=== PATIENT | female | born 1985 | race Caucasian/White ===

== ENCOUNTER 2017-02-12 19:01 | Emergency (ER) | payer SELFPAY ==
[~2017-02-12] VITALS: Ht 165.1 cm; Wt 107.8 kg
[~2017-02-12 19:01] MED LIST: GUAI100S6 PO; ZITH250T PO
[2017-02-12 19:16] VITALS: BP 178/82; PULSE 86; RESP 18; TEMP 97.8; O2SAT 100
[2017-02-12 19:32] LABS: BLOOD, URINE LARGE (NEG); GLUCOSE,URINE NEG (NEG); KETONE, URINE NEG (NEG); NITRITE,URINE NEG (NEG)
[2017-02-12 19:33] LABS: URINE COLOR STRAW (YELLW/STRAW)
--- NOTE | 2017-02-12 19:35 | PD ---
HPI . Flank pain Chief Complaint: Flank/Kidney Pain Time Seen by Provider: 19:30 Travel History International Travel<30 days: No Contact w/Intl Traveler<30days: No History of Present Illness HPI Patient presents with chief complaint of right flank pain. Onset was this morning. Pain is rated 9/10. She has no associated fever or vomiting. She does report urinary frequency. She thinks that she has a kidney stone. She states that she has passed several tiny stones. She passed one yesterday. She did not start having pain until today. Her pain was improved with 1/2 of a hydrocodone earlier today. PFSH Past Medical History Medical History: Denies Significant Hx Diminished Hearing: No Tetanus Vaccination: > 5 Years Influenza Vaccination: No ?: Not LMP: 01/30/17 Past Surgical History Surgical History: No Previous Surgery Social History Alcohol Use: Yes (RARELY) Tobacco Use: Yes (1/2 PPD) Substance Use: Yes (weed; rarely ) Allergies-Medications (Allergen,Severity, Reaction): Coded Allergies: shellfish derived (Verified Allergy, Severe, throat swells, 02/12/17) iodine (Verified Allergy, Intermediate, rash, 02/12/17) latex (Verified Allergy, Intermediate, rash, 02/12/17) Reported Meds & Prescriptions Reported Meds & Active Scripts Active No Active Prescriptions or Reported Medications Review of Systems Except as stated in HPI: all other systems reviewed are Neg General / Constitutional: No: Fever, Chills Gastrointestinal: No: Nausea, Vomiting Genitourinary: Positive: Frequency, Flank Pain, No: Dysuria, Hematuria Physical Exam Narrative GENERAL: Awake and alert and in no acute distress. SKIN: warm/dry. HEAD: Normocephalic. EYES: Pupils equal and round. No scleral icterus. No injection or drainage. ENT: No nasal bleeding or discharge. Mucous membranes pink and moist. NECK: Trachea midline. Full range of motion without pain.. CARDIOVASCULAR: Regular rate and rhythm. RESPIRATORY: No accessory muscle use. Clear to auscultation. Breath sounds equal bilaterally. GASTROINTESTINAL: Abdomen soft. Nontender. Bowel sounds present. Nondistended. : No CVA tenderness. MUSCULOSKELETAL: No obvious deformities. NEUROLOGICAL: Awake and alert. No obvious cranial nerve deficits. Motor grossly within normal limits. Normal speech. PSYCHIATRIC: Appropriate mood and affect; insight and judgment normal. Data Data Last Documented VS Vital Signs Date Time Temp Pulse Resp B/P (MAP) Pulse Ox O2 Delivery O2 Flow Rate FiO2 02/12/17 19:16 97.8 86 18 178/82 (114) 100 Orders Orders Urinalysis - C+S If Indicated (02/12/17 19:18) Ct Abd/Pel W/O Iv Contrast (02/12/17 19:19) ^ Saline Lock (02/12/17 19:31) Morphine Inj (Morphine Inj) (02/12/17 19:45) Ondansetron Inj (Zofran Inj) (02/12/17 19:45) Ketorolac Inj (Toradol Inj) (02/12/17 19:45) Urine Culture (02/12/17 19:28) Ceftriaxone Inj (Rocephin Inj) (02/12/17 19:45) Sodium Chlor 0.9% 1000 Ml Inj (Ns 1000 M (02/12/17 19:45) Ed Urine Pregnancytest Poc (02/12/17 19:57) Labs Laboratory Tests Test 02/12/17 19:28 Urine Color STRAW Urine Turbidity CLEAR Urine pH 6.0 Urine Specific [place] 1.005 Urine Protein TRACE mg/dL Urine Glucose (UA) NEG mg/dL Urine Ketones NEG mg/dL Urine Occult Blood LARGE Urine Nitrite NEG Urine Bilirubin NEG Urine Leukocyte Esterase MOD Urine RBC 4-9 /hpf Urine WBC 20-24 /hpf Urine WBC Clumps FEW Urine Squamous Epithelial Cells 0-5 /hpf Urine Bacteria FEW /hpf Microscopic Urinalysis Comment CULTURE INDICATED MDM Medical Decision Making Medical Screen Exam Complete: Yes Emergency Medical Condition: Yes Differential Diagnosis Differential diagnosis of flank pain includes but is not limited to kidney stone , pyelonephritis, musculoskeletal pain, PE Narrative Course Patient presents with right flank pain. UA and CT are pending. I will treat her with morphine, Toradol and Zofran. UA>>mod LE, 4-9 RBCs, 20-24 WBCs, few WBC clumps, few bact I have added Rocephin and a liter of IVF. CT: 1. No radiopaque renal calculi or evidence for obstructive uropathy. 2. Normal appendix. 3. No definitive CT findings to explain patient's abdominal pain. She will be treated for urinary tract infection. Diagnosis Primary Impression: Flank pain Additional Impression: Urinary tract infection Qualified Codes: N30.00 - Acute cystitis without hematuria Patient Instructions: General Instructions, Narcotic given in the ED, Urinary Tract Infection in Women (DC) Med/Other Pt SpecificInfo: Prescription(s) given Scripts Tramadol (Ultram) 50 Mg Tab 50 MG PO Q4H Y for PAIN, #12 TAB 0 Refills Prov: Tasha Britt MD 02/12/17 Nitrofurantoin Monohydrate Macrocrystals (Macrobid) 100 Mg Cap 100 MG PO BID for Infection for 5 Days, #10 CAP 0 Refills Prov: Tasha Britt MD 02/12/17 Disposition: 01 DISCHARGE HOME Condition: Stable Tasha Britt MD Feb 12, 2017 19:35
[2017-02-12 19:36] LABS: BACTERIA, URINE FEW /hpf; COMMENT (UR) CULTURE INDICATED; CULTURE IF INDICATED CULTURE INDICATED; SQUAMOUS EPITHELIAL CELL URINE 0-5 /hpf (0-5)
[2017-02-12] MEDS ORDERED: KETOROLAC TROMETHAMINE 30 MG/ML (IVP) VIAL IV PUSH ONE (19:45)
[2017-02-12] MEDS ORDERED: ONDANSETRON HCL 4 MG/2 ML VIAL IV PUSH ONE (19:45)
[2017-02-12] MEDS ORDERED: SODIUM CHLOR 0.9% 1000 ML INJ 1,000 ML IV ONE (19:45)
[2017-02-12] MEDS ORDERED: MORPHINE SULFATE 4 MG/ML INJ IV ONE (19:45)
[2017-02-12] MEDS ORDERED: cefTRIAXone INJ 1,000 MG in SODIUM CHLORIDE 0.9% INJ 100 ML IV ONE (19:45)
--- NOTE | 2017-02-12 20:53 | RADRPT ---
EXAM DATE/TIME: 02/12/2017 20:21 [facility] COMPARISON: No previous studies available for comparison. INDICATIONS : Right flank pain for one day. Prior history of renal calculi ORAL CONTRAST: No oral contrast ingested. RADIATION DOSE: 27.67 CTDIvol (mGy) MEDICAL HISTORY : Renal calculi. SURGICAL HISTORY : None. ENCOUNTER: Initial ACUITY: 1 day PAIN SCALE: 9/10 LOCATION: Right flank TECHNIQUE: Volumetric scanning of the abdomen and pelvis was performed. Using automated exposure control and ad justment of the mA and/or kV according to patient size, radiation dose was kept as low as reasonably achievable to obtain optimal diagnostic quality images. DICOM format image data is available electro nically for review and comparison. FINDINGS: LOWER LUNGS: The visualized lower lungs are clear. LIVER: Homogeneous density without lesion. There is no dilation of the biliary tree. No calcified gallston es. SPLEEN: Normal size without lesion. PANCREAS: Within normal limits. KIDNEYS: Normal in size and shape. There is no mass, stone, or hydronephrosis. ADRENAL GLANDS: Within normal limits. VASCULAR: There is no aortic aneurysm. BOWEL/MESENTERY: The stomach, small bowel, and colon demonstrate no acute abnormality. There is no free intraperitone al air or fluid. ABDOMINAL WALL: Within normal limits. RETROPERITONEUM: There is no lymphadenopathy. BLADDER: No wall thickening or mass. REPRODUCTIVE: Within normal limits. Several calcifications in the deep pelvis do not correspond to the course of th e ureters and likely reflect phleboliths. INGUINAL: There is no lymphadenopathy or hernia. MUSCULOSKELETAL: Within normal limits for patient age. CONCLUSION: 1. No radiopaque renal calculi or evidence for obstructive uropathy. 2. Normal appendix. 3. No definitive CT findings to explain patient's abdominal pain. Óscar Fournier MD on February 12, 2017 at 20:49 Board Certified Radiologist. This report was verified electronically.
[2017-02-12] MEDS ORDERED: MACR100C2 PO (20:58)
[2017-02-12] MEDS ORDERED: TRAM50 PO (20:58)
[2017-02-12 21:10] VITALS: BP 114/62; PULSE 75; RESP 16; O2SAT 100
== END 2017-02-12 21:12 | disposition home or self-care (01) ==
LOC: PHED 19:01
DX: N30.00 Acute cystitis without hematuria (principal); B96.89 Other specified bacterial agents as the cause of diseases classified elsewhere; F17.200 Nicotine dependence, unspecified, uncomplicated
CPT/HCPCS: 74176; 81001; 84703; 87086; 96361; 96365; 99285; J0696; J1885; J2270; J2405; J7030

== ENCOUNTER 2017-07-22 13:35 | Emergency (ER) | payer SELFPAY ==
[~2017-07-22] VITALS: Ht 165.1 cm; Wt 107.0 kg
[~2017-07-22 13:35] MED LIST changes: -GUAI100S6 PO; +MACR100C2 PO; +TRAM50 PO; -ZITH250T PO
[2017-07-22 13:41] VITALS: BP 158/74; PULSE 72; RESP 16; TEMP 98.4; O2SAT 98
[2017-07-22] MEDS ORDERED: AMOX875T PO (13:55)
[2017-07-22] MEDS ORDERED: ZOFR4TAB3 SL (13:55)
[2017-07-22] MEDS ORDERED: MAGICADU2 SWISH-SWAL (13:55)
--- NOTE | 2017-07-22 13:59 | PD ---
HPI Chief Complaint: ENT Complaint Time Seen by Provider: 13:48 Travel History International Travel<30 days: No Contact w/Intl Traveler<30days: No Traveled to known affect area: No History of Present Illness HPI 31-year-old female that presents to the ED for evaluation of sore throat, congestion and swollen lymph node. Per patient it all started today. She does have multiple sick contacts at home. Per patient 3 people diagnosed with strep throat and one with pneumonia. She works in a [employer] center and she is in close proximity with these individuals. She denies any symptoms yesterday. Per patient she woke up today with a sore throat, inflamed lymph node and congestion with some feeling of nausea. No vomiting. No abdominal pain. No urinary or bowel movement issues. No . Takes no medications. She had to get off early from work today because she was feeling bad. Denies any fevers or sweats with states having some chills. Has not seen anybody for this. No other medical issues reported. She does have a history of strep throat in the past. PFSH Past Medical History Medical History: Denies Significant Hx Diminished Hearing: No Tetanus Vaccination: > 5 Years Influenza Vaccination: No ?: Not LMP: DUE NOW Past Surgical History Surgical History: No Previous Surgery Social History Alcohol Use: Yes (RARELY) Tobacco Use: Yes (1/2 PPD) Substance Use: Yes (weed; rarely ) Allergies-Medications (Allergen,Severity, Reaction): Coded Allergies: shellfish derived (Verified Allergy, Severe, throat swells, 07/22/17) iodine (Verified Allergy, Intermediate, rash, 07/22/17) latex (Verified Allergy, Intermediate, rash, 07/22/17) Reported Meds & Prescriptions Reported Meds & Active Scripts Active Zofran Odt (Ondansetron Odt) 4 Mg Tab 4 Mg SL Q6HR PRN Magic Mouthwash Adult Liq (Multi-Ingredient Mouthwash/Gargle) 120 Ml Susp 5 Ml SWISH-SWAL ACHS Each 5mL contains: Nystatin 200,000units, Diphenhydramine 4.25mg, Viscous Lidocaine 10mg, Child syrup 0.8 mL Amoxicillin 875 Mg Tab 875 Mg PO BID 10 Days Review of Systems Except as stated in HPI: all other systems reviewed are Neg Physical Exam Narrative GENERAL: Well-nourished, well-developed patient in no apparent distress. SKIN: Warm and dry. HEAD: Atraumatic. Normocephalic. EYES: Pupils equal and round reactive to light and accommodation. No scleral icterus. No injection or drainage. ENT: No nasal bleeding or discharge. Mucous membranes pink and moist. TMs are clear with no sign of infection or perforation. No mastoid tenderness. Ear canals are intact bilaterally. No lymphadenopathy. Nostril mucosa is red and moist with clear mucus noted. No sinus tenderness to palpation noted. Tonsils are not enlarged or swollen. No ulvua Deviation. Tongue is midline. NECK: Trachea midline. No JVD. No meningeal signs noted CARDIOVASCULAR: Regular rate and rhythm. RESPIRATORY: No accessory muscle use. Clear to auscultation. Breath sounds equal bilaterally. GASTROINTESTINAL: Abdomen soft, non-tender, nondistended. Hepatic and splenic margins not palpable. MUSCULOSKELETAL: Extremities without clubbing, cyanosis, or edema. No obvious deformities. NEUROLOGICAL: Awake and alert. No obvious cranial nerve deficits. Motor grossly within normal limits. Five out of 5 muscle strength in the arms and legs. Normal speech. PSYCHIATRIC: Appropriate mood and affect; insight and judgment normal. Data Data Last Documented VS Vital Signs Date Time Temp Pulse Resp B/P (MAP) Pulse Ox O2 Delivery O2 Flow Rate FiO2 07/22/17 13:41 98.4 72 16 158/74 (102) 98 Orders Orders Ed Discharge Order (07/22/17 13:54) [facility] Medical Decision Making Medical Screen Exam Complete: Yes Emergency Medical Condition: Yes Medical Record Reviewed: Yes Differential Diagnosis Strep test versus pharyngitis versus viral illness versus URI versus pneumonia Narrative Course 31-year-old female that presents to the ED for evaluation of cold-like symptoms. Patient was properly examined and was found to have signs and symptoms consistent appears to be likely pharyngitis. She does have close contacts with strep throat. Will start with amoxicillin. Patient was given Zofran for nausea as well as Magic mouthwash for pain. Patient was told to take OTC meds as needed. Given note for work. See ED worsening symptoms. Follow-up with PCP. Diagnosis Primary Impression: Pharyngitis, acute Qualified Codes: J02.9 - Acute pharyngitis, unspecified Patient Instructions: General Instructions Departure Forms: Tests/Procedures, Work Release Enter return to work date: July 24, 2017 Additional Instructions: Motrin and Tylenol for pain and fever. You can use [id number]-luxtejj antihistamine as well as well as Mucinex as needed for runny nose and congestion. Cough drops for cough as needed. Drink plenty of fluids. Follow-up with PCP. See ED for worsening symptoms. Med/Other Pt SpecificInfo: Prescription(s) given Scripts Ondansetron Odt (Zofran Odt) 4 Mg Tab 4 MG SL Q6HR Y for Nausea/Vomiting, #20 TAB 0 Refills Prov: Ty Reynoso MD 07/22/17 Yppyjdfe-Jatgvikiyublxhb-Gtvgjhtmr Liq (Magic Mouthwash Adult Liq) 120 Ml Susp 5 ML SWISH-SWAL ACHS for Mouth sores, #120 ML 0 Refills Each 5mL contains: Nystatin 200,000units, Diphenhydramine 4.25mg, Viscous Lidocaine 10mg, Child syrup 0.8 mL Prov: Ty Reynoso MD 07/22/17 Amoxicillin (Amoxicillin) 875 Mg Tab 875 MG PO BID for Infection for 10 Days, #20 TAB 0 Refills Prov: Ty Reynoso MD 07/22/17 Disposition: 01 DISCHARGE HOME Condition: Devin Glynn July 22, 2017 13:59
== END 2017-07-22 14:16 | disposition home or self-care (01) ==
LOC: PHEFT 13:35
DX: J02.9 Acute pharyngitis, unspecified (principal); R09.81 Nasal congestion; F17.200 Nicotine dependence, unspecified, uncomplicated
CPT/HCPCS: 99283